=== PATIENT | female | born 1955 | race Caucasian/White ===

== ENCOUNTER 2017-02-21 19:58 | Emergency (ER) | payer BC ==
[2017-02-21] MEDS ORDERED: cefTRIAXone 1,000 MG VIAL IM ONE (20:34)
[2017-02-21] MEDS ORDERED: Diphtheria/Tetanus Toxoids,Adult (Td) 0.5 ML SDV IM ONE (20:36)
--- NOTE | 2017-02-21 20:42 | EDM.PDOC ---
ED HPI GENERAL MEDICAL PROBLEM - General Chief Complaint: Upper Extremity Injury/Pain Stated Complaint: FELL AND STAB WITH THE NAIL Time Seen by Provider: 02/21/17 20:14 Source of Information: Reports: Patient, Family History Limitations: Reports: No Limitations - History of Present Illness INITIAL COMMENTS - FREE TEXT/NARRATIVE: 61 years old w f came to the ed with her friend after she fell at 7.30 onto a board with a uziel nail in it. 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 No loss of function, no bleed. Swelling around to puncture wound. 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 Pt denied other acute medical issues. Pt has H/O MRSA infections. Onset: Today, Sudden Onset Date: 02/21/17 Onset Time: 19:30 Duration: Hour(s):, Intermittent Location: Reports: Upper Extremity, Right Quality: Reports: Ache, Burning, Dull, Pressure Severity: Mild Improves with: Reports: Cold Therapy, Medication Worsens with: Reports: Medication Context: Reports: Trauma Associated Symptoms: Reports: No Other Symptoms Right Hand Pain Score (Numeric/FACES): 10 - Related Data Allergies Allergy/AdvReac Type Severity Reaction Status Date / Time droperidol [From Innovar] Allergy Other Verified 02/21/17 20:06 fentanyl [From Innovar] Allergy Other Verified 02/21/17 20:06 prochlorperazine Allergy Hypertensio Verified 02/21/17 20:06 [From Compazine] n sulfamethoxazole Allergy Rash Verified 02/21/17 20:06 [From Bactrim] trimethoprim [From Bactrim] Allergy Rash Verified 02/21/17 20:06 Home Meds: Home Meds Acetaminophen/HYDROcodone [[place] 325-5 MG] 1 tab PO Q4H PRN #16 tab 02/21/17 [Rx ] Armodafinil [Nuvigil] 250 mg PO DAILY 02/21/17 [History] Cephalexin [Keflex] 500 mg PO Q6HR #40 cap 02/21/17 [Rx] Cetirizine HCl [Zyrtec] 10 mg PO DAILY 02/21/17 [History] Clindamycin HCl 300 mg PO TID #30 capsule 02/21/17 [Rx] Diazepam [Valium] 5 mg PO ASDIRECTED PRN 02/21/17 [History] Eletriptan HBr [Relpax] 20 mg PO DAILY PRN 02/21/17 [History] Formoterol/Mometasone [Dulera 100 MCG/5 MCG] 2 puff INH BID 02/21/17 [History] Melatonin/Pyridoxine HCl (B6) [Melatonin 10 mg Tablet] 1 tab PO BEDTIME [History] Omeprazole Magnesium [Prilosec Otc] 20 mg PO BID 02/21/17 [History] Ondansetron [Zofran ODT] 4 mg PO ASDIRECTED PRN 02/21/17 [History] Promethazine [Phenergan] 25 mg PO ASDIRECTED PRN 02/21/17 [History] Sertraline [Zoloft] 50 mg PO DAILY 02/21/17 [History] Tolterodine Tartrate [Detrol LA] 4 mg PO DAILY 02/21/17 [History] Past Medical History Gastrointestinal History: Reports: GERD 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: Musculoskeletal History: Reports: Fracture, Osteoarthritis Neurological History: Reports: Concussion, Migraines Psychiatric History: Reports: Anxiety, Depression - Past Surgical History HEENT Surgical History: Reports: Naso-Sinus Surgery GI Surgical History: Reports: Appendectomy, Cholecystectomy, Colonoscopy Female Surgical History: Reports: Hysterectomy Neurological Surgical History: Reports: C-Spine Musculoskeletal Surgical History: Reports: Arthroscopic Knee Social & Family History - Family History Family Medical History: Noncontributory - Tobacco Use Smoking Status *Q: Never Smoker Second Hand Smoke Exposure: Yes - Caffeine Use Caffeine Use: Reports: Coffee, Soda - Recreational Drug Use Recreational Drug Use: No Review of Systems - Review of Systems Review Of Systems: See Below Constitutional: Reports: No Symptoms Eyes: Reports: No Symptoms Ears: Reports: No Symptoms Nose: Reports: No Symptoms Mouth/Throat: Reports: No Symptoms Respiratory: Reports: No Symptoms Cardiovascular: Reports: No Symptoms GI/Abdominal: Reports: No Symptoms Genitourinary: Reports: No Symptoms Musculoskeletal: Reports: Hand Pain, Muscle Pain Skin: Reports: Wound (punctured r hypertenar) Neurological: Reports: Numbness (r thumb with FROM) Psychiatric: Reports: No Symptoms ED EXAM, GENERAL - Physical Exam Exam: See Below Exam Limited By: No Limitations General Appearance: Alert, WD/WN, Mild Distress Eye Exam: Bilateral Eye: Normal Inspection Ears: Normal External Exam Ear Exam: Bilateral Ear: Auricle Normal Nose: Normal Inspection, Normal Mucosa, No Blood Throat/Mouth: Normal Inspection, Normal Lips Head: Atraumatic, Normocephalic Neck: Normal Inspection, Supple Respiratory/Chest: No Respiratory Distress, Lungs Clear, Normal Breath Sounds, No Accessory Muscle Use Cardiovascular: Normal Peripheral Pulses, Regular Rate, Rhythm, No Edema Peripheral Pulses: 1+: Femoral (L), Femoral (R) GI/Abdominal: Normal Bowel Sounds, Soft, Non-Tender (Female) Exam: Deferred Rectal (Female) Exam: Deferred Back Exam: Normal Inspection, Full Range of Motion Extremities: Other (ROM 90% of r thump with mild numbness, CAP refill < 2 sec. ) Neurological: Alert, Oriented, CN II-XII Intact, Normal Cognition, Normal Gait, Sensory/Motor Deficit (minor r thimb/hypertenar) Psychiatric: Normal Affect, Normal Mood Skin Exam: Warm, Dry, Intact, Normal Color, No Rash, Wound/Incision (punctured wound r thumb with hematoma) Lymphatic: No Adenopathy Course - Vital Signs Text/Narrative:: 61 years old w f came to the ed with her friend after she fell at 7.30 onto a board with a uziel nail in it. 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 No loss of function, no bleed. Swelling around to puncture wound. 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 Pt denied other acute medical issues. Last TD immunization unclear. H/O MRSA infections. PE: Punctured wound r hypertenar, no bleed, no erythema, mild numbness with limited ROM (minor) Imaging: R hand: Hematoma r hypertenar, no FB. Impression: Punctured wound r Hand. H/O MRSA, DDX: Carpal tunnel, hematoma, comprssed nerves of hypertenar r hand Tx: TD, Rocephin, Clindamycin, ICE, Vicodin, Hand elevation, dressing Reexam: Improved. Plan: D/C to home with instructions. Addendum: F/U call on 02/23/2017: Pt is doing better as per . Last Recorded V/S: Last Vital Signs Temp 36.8 C 02/21/17 20:14 Pulse 74 02/21/17 21:45 Resp 18 02/21/17 21:45 BP 138/95 H 02/21/17 21:45 Pulse Ox 97 02/21/17 21:45 - Orders/Labs/Meds Meds: Medications Discontinued Medications Generic Name Dose Route Start Last Admin Trade Name Freq PRN Reason Stop Dose Admin Hydrocodone Bitart/Acetaminophen 1 tab 02/21/17 20:43 02/21/17 20:59 [place] 325-5 Mg PO 02/21/17 20:44 1 tab ONETIME ONE Administration Ceftriaxone Sodium 1,000 mg 02/21/17 20:34 02/21/17 20:54 Rocephin IM 02/21/17 20:35 1,000 mg ONETIME ONE Administration Clindamycin HCl 300 mg 02/21/17 21:16 02/21/17 21:30 Cleocin PO 02/21/17 21:17 300 mg ONETIME ONE Administration Diphtheria/Tetanus/Acell Pertussis 0.5 ml 02/21/17 20:51 02/21/17 20:51 Adacel IM 02/21/17 20:52 0.5 ml .ONCE ONE Administration Insulin Human Regular 0 unit 02/22/17 09:00 Humulin R SUBCUT TID [facility] Protocol Tetanus/Diphtheria Toxoids 0.5 ml 02/21/17 20:36 02/21/17 20:55 Tenivac IM 02/21/17 20:37 Not Given .ONCE ONE Departure - Departure Time of Disposition: 21:26 Disposition: Home, Self-Care 01 Condition: Good Clinical Impression: Puncture wound of hand, right Qualifiers: Encounter type: initial encounter Foreign body presence: without foreign body Qualified Code(s): S61.431A - Puncture wound without foreign body of right hand , initial encounter - Discharge Information Prescriptions: Cephalexin [Keflex] 500 mg PO Q6HR #40 cap Acetaminophen/HYDROcodone [[place] 325-5 MG] 1 tab PO Q4H PRN #16 tab PRN Reason: severe pain Clindamycin HCl 300 mg PO TID #30 capsule Referrals: Adelaida Calderón MD [Primary Care Provider] - Forms: ED Department Discharge Additional Instructions: please take the meds as recommended, please take vicodin for severe pain, please soak r hand in betadiene (diluted) twice for 3 days. Please f/u with your PMD in 3-5 days, please come back to the ed if your symptoms get worse acutely.
[2017-02-21] MEDS ORDERED: Acetaminophen/HYDROcodone 325-5 MG Tab PO ONE ×2 (20:43→21:16)
[2017-02-21] MEDS ORDERED: Diphtheria,Pertussis(Acell),Tetanus Vaccine 0.5 ML SDV IM ONE (20:51)
[2017-02-21] MEDS ORDERED: Clindamycin HCl 150 MG Cap PO ONE (21:16)
[2017-02-21 22:09] VITALS: BP 138/95
[2017-02-22] MEDS ORDERED: Insulin Regular, Human 100 Units/ML 3 ML Vial SUBCUT SCH (09:00)
--- NOTE | 2017-02-24 15:26 | CR ---
INDICATION: Puncture wound - nail went through hand. RIGHT HAND: Three views of the right hand were obtained and revealed no definite foreign body, fracture, or dislocation. Osteoarthritic changes are noted at the first metatarsal tarsal joint, navicular multangular joints, first metatarsophalangeal joint to a minimal degree, as well as at the interphalangeal joint of the thumb and the DIP joints in general, most severe at the index finger. Degenerative changes are also noted at the second metacarpophalangeal joint. IMPRESSION: 1. No definite acute fracture or dislocation. 2. Osteoarthritis. MTDD
== END 2017-02-21 21:50 | disposition home or self-care (01) ==
LOC: FB.ED 19:58
DX: S61.431A Puncture wound without foreign body of right hand, initial encounter (principal); M19.90 Unspecified osteoarthritis, unspecified site; G43.909 Migraine, unspecified, not intractable, without status migrainosus; F41.9 Anxiety disorder, unspecified; F32.9 Major depressive disorder, single episode, unspecified; Z79.899 Other long term (current) drug therapy; Z90.49 Acquired absence of other specified parts of digestive tract; Z98.890 Other specified postprocedural states; Z90.710 Acquired absence of both cervix and uterus; Z79.2 Long term (current) use of antibiotics; Z88.2 Allergy status to sulfonamides; Z88.8 Allergy status to other drugs, medicaments and biological substances; X58.XXXA Exposure to other specified factors, initial encounter
CPT/HCPCS: 73130; 90715; 99283; A4217; A9270; J0696

== ENCOUNTER 2017-04-22 18:12 | Emergency (ER) | payer OTHER, BC ==
[~2017-04-22 18:12] MED LIST: Lidocaine 1% with EPINEPHrine 1:100,000 20 ML MDV INFILT ONE
--- NOTE | 2017-04-22 18:42 | EDM.PDOC ---
ED HPI GENERAL MEDICAL PROBLEM - General Chief Complaint: Upper Extremity Injury/Pain Stated Complaint: LEFT MIDDLE FINGER CUT Time Seen by Provider: 04/22/17 18:15 Source of Information: Reports: Patient History Limitations: Reports: No Limitations - History of Present Illness INITIAL COMMENTS - FREE TEXT/NARRATIVE: 62 yo female cut her finger on a broken glass at work before arrival. Tetanus is UTD. Is worried about retained glass. 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 (see below) (wound rinsed.) - Related Data Allergies Allergy/AdvReac Type Severity Reaction Status Date / Time droperidol [From Innovar] Allergy Other Verified 02/21/17 20:06 fentanyl [From Innovar] Allergy Other Verified 02/21/17 20:06 prochlorperazine Allergy Hypertensio Verified 02/21/17 20:06 [From Compazine] n sulfamethoxazole Allergy Rash Verified 02/21/17 20:06 [From Bactrim] trimethoprim [From Bactrim] Allergy Rash Verified 02/21/17 20:06 Home Meds: Home Meds Acetaminophen/HYDROcodone [[place] 325-5 MG] 1 tab PO Q4H PRN #16 tab 02/21/17 [Rx ] Armodafinil [Nuvigil] 250 mg PO DAILY 02/21/17 [History] Cephalexin [Keflex] 500 mg PO Q6HR #40 cap 02/21/17 [Rx] Cetirizine HCl [Zyrtec] 10 mg PO DAILY 02/21/17 [History] Clindamycin HCl 300 mg PO TID #30 capsule 02/21/17 [Rx] Diazepam [Valium] 5 mg PO ASDIRECTED PRN 02/21/17 [History] Eletriptan HBr [Relpax] 20 mg PO DAILY PRN 02/21/17 [History] Formoterol/Mometasone [Dulera 100 MCG/5 MCG] 2 puff INH BID 02/21/17 [History] Melatonin/Pyridoxine HCl (B6) [Melatonin 10 mg Tablet] 1 tab PO BEDTIME [History] Omeprazole Magnesium [Prilosec Otc] 20 mg PO BID 02/21/17 [History] Ondansetron [Zofran ODT] 4 mg PO ASDIRECTED PRN 02/21/17 [History] Promethazine [Phenergan] 25 mg PO ASDIRECTED PRN 02/21/17 [History] Sertraline [Zoloft] 50 mg PO DAILY 02/21/17 [History] Tolterodine Tartrate [Detrol LA] 4 mg PO DAILY 02/21/17 [History] Past Medical History Gastrointestinal History: Reports: GERD 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: Musculoskeletal History: Reports: Fracture, Osteoarthritis Neurological History: Reports: Concussion, Migraines Psychiatric History: Reports: Anxiety, Depression - Past Surgical History HEENT Surgical History: Reports: Naso-Sinus Surgery GI Surgical History: Reports: Appendectomy, Cholecystectomy, Colonoscopy Female Surgical History: Reports: Hysterectomy Neurological Surgical History: Reports: C-Spine Musculoskeletal Surgical History: Reports: Arthroscopic Knee Social & Family History - Family History Family Medical History: Noncontributory - Tobacco Use Smoking Status *Q: Never Smoker Second Hand Smoke Exposure: Yes - Caffeine Use Caffeine Use: Reports: Coffee, Soda - Recreational Drug Use Recreational Drug Use: No Review of Systems - Review of Systems Review Of Systems: See Below Constitutional: Reports: No Symptoms Musculoskeletal: Reports: No Symptoms Skin: Reports: Wound (L hand) Neurological: Reports: No Symptoms Psychiatric: Reports: No Symptoms ED EXAM, GENERAL - Physical Exam Exam: See Below Exam Limited By: No Limitations General Appearance: Alert, WD/WN, No Apparent Distress Extremities: Other (wound left hand) Neurological: Alert, Oriented, CN II-XII Intact, Normal Cognition, No Motor/ Sensory Deficits Psychiatric: Normal Affect, Normal Mood Skin Exam: Warm, Dry, Normal Color, No Rash, Wound/Incision (small laceration L long finger) Lymphatic: No Adenopathy ED TRAUMA EXTREMITY PROCEDURES - Laceration/Wound Repair Left Anterior Finger Lac/Wound Length In cm: 0.2 Appearance: Subcutaneous, Clean Distal NVT: Neuro & Vascular Intact, No Tendon Injury Anesthetic Type: Local Local Anesthesia - Lidocaine (Xylocaine): 1% with EPI Local Anesthetic Volume: 2cc Skin Prep: Other (surgical scrub) Exploration/Debridement/Repair: Wound Explored, Minimal Debridement, No Foreign Material Found Closed With: Sutures Suture Size: other (5-0) Suture Type: Nylon, Interrupted, Simple Drain Placement: No Sterile Dressing Applied: Nurse Tetanus Status Addressed: Yes Complications: No Departure - Departure Time of Disposition: 18:46 Disposition: Home, Self-Care 01 Condition: Good Clinical Impression: Laceration of finger Qualifiers: Encounter type: initial encounter Finger: middle finger Damage to nail status: without damage Foreign body presence: without foreign body Laterality: left Qualified Code(s): S61.213A - Laceration without foreign body of left middle finger without damage to nail, initial encounter - Discharge Information Referrals: Sheets-Adelaida Delgado MD [Primary Care Provider] - Additional Instructions: Clean wound twice daily with soap and water. Dry. Apply antibiotic ointment and a new dressing. Stitches out in 9-10 days in the clinic, call for an appt. Take acetaminophen as needed for pain relief. Recheck for signs of infection.
[2017-04-22 19:01] VITALS: BP 145/69
== END 2017-04-22 19:05 | disposition home or self-care (01) ==
LOC: FB.ED 18:12
DX: S61.213A Laceration without foreign body of left middle finger without damage to nail, initial encounter (principal); K21.9 Gastro-esophageal reflux disease without esophagitis; F41.9 Anxiety disorder, unspecified; F32.9 Major depressive disorder, single episode, unspecified; M19.90 Unspecified osteoarthritis, unspecified site; Z88.8 Allergy status to other drugs, medicaments and biological substances; Z88.2 Allergy status to sulfonamides; Z88.1 Allergy status to other antibiotic agents; Z79.899 Other long term (current) drug therapy; Z90.49 Acquired absence of other specified parts of digestive tract; Z90.710 Acquired absence of both cervix and uterus; Z98.890 Other specified postprocedural states; W25.XXXA Contact with sharp glass, initial encounter
CPT/HCPCS: 12001; 99283

== ENCOUNTER 2018-01-06 07:13 | Day surgery (SDC) | payer BC, MEDICAID ==
[2018-01-06] MEDS ORDERED: Sodium Chloride 0.9% 10 ML Syringe FLUSH PRN (07:15)
[2018-01-06] MEDS ORDERED: Lactated Ringers 1,000 ML IV SCH (07:15)
--- NOTE | 2018-01-06 08:35 | PCM.HPR ---
H & P Addendum review - H & P Addendum Review Date of Original H & P: 01/02/18 Date Reviewed: 01/06/18 Time Reviewed: 08:34 Patient was Examined: No Changes
[2018-01-06] MEDS ORDERED: Lactated Ringers 1,000 ML IV ONE (08:40)
[2018-01-06] MEDS ORDERED: Propofol 200 MG/20 ML SDV IV ONE (08:40)
[2018-01-06] MEDS ORDERED: Midazolam 1 MG/ML 2 ML SDV IV ONE (08:40)
[2018-01-06] MEDS ORDERED: Lidocaine 1% with EPINEPHrine 1:100,000 20 ML MDV INJECT ONE (09:38)
[2018-01-06] MEDS ORDERED: Bupivacaine 0.5% 30 ML SDV INJECT ONE (09:38)
--- NOTE | 2018-01-06 09:52 | PCM.OPNOTE ---
- General Post-Op/Procedure Note Date of Surgery/Procedure: 01/06/18 Operative Procedure(s): Colonoscopy. LEFT Lateral Internal Sphincterotomy Findings: Normal Colonoscopy Chronic Anal Fissure Pre Op Diagnosis: Hematochezia Post-Op Diagnosis: Same Anesthesia Technique: MAC Primary Surgeon: Marcos Bell EBL in mLs: 5 Complications: None Condition: Good
[2018-01-06 11:31] VITALS: BP 128/86
--- NOTE | 2018-01-06 15:03 | OR ---
DATE OF OPERATION: 01/06/2018 SURGEON: Marcos Bell MD PREOPERATIVE DIAGNOSES: 1. History of colon polyps. 2. Hematochezia. POSTOPERATIVE DIAGNOSES: 1. Normal colonoscopy. 2. Chronic anal fissure. PROCEDURES PERFORMED: 1. Colonoscopy. 2. Left lateral internal sphincterotomy. ANESTHESIA: Local with IV sedation. DESCRIPTION OF PROCEDURE: The patient was brought to the procedure room, where she was placed on her left side and IV sedation administered. Digital rectal exam was performed, which was normal. Anoscopic examination was then performed and reveals a chronic anal fissure in the anterior midline. There was no active bleeding today, but it appears inflamed and likely had recent bleeding. The colonoscope was inserted and advanced to the level of the cecum with some difficulty getting to the right colon requiring pressure on the abdomen. I was able to reach the cecum, which was confirmed by identifying the appendiceal lumen and ileocecal valve. Prep was good and surfaces were well visualized. Upon withdrawing the scope, the ascending, transverse and descending colon were normal in appearance. The sigmoid colon and rectum were normal. Retroflexion was normal. Air was removed, and the scope withdrawn. The patient tolerated this portion of the procedure well. Next, the patient was brought to the operating room, where she was placed in the prone jackknife position. Buttocks were sprayed with benzoin and retracted with tape. Betadine prep was performed. The anal fissure was again reconfirmed in the anterior midline. Some mildly enlarged internal hemorrhoidal tissue was present, but no evidence that this is responsible for her bleeding. A 50:50 mixture of 1% lidocaine with epinephrine and 0.5% Marcaine was infiltrated in the left perianal region and a small incision made. Internal sphincter was dissected, and the tight constricting band portion transected with Metzenbaum scissors. I then pressed this area with my finger again and dilated this slightly. I did not want to split any more muscle fiber since she did tell me in the office that she does have some occasional incontinence. I felt I split just enough muscle to allow the fissure to heal. Pressure was held for a few minutes and hemostasis assured. The skin was closed with interrupted 4-0 Vicryl. A bulky sterile pressure dressing was applied. The patient tolerated the procedure well. Estimated blood loss was 5 mL. She returned to Postanesthesia in a stable condition. /[id number] ANN MARIE/KINZA CC: Adelaida Calderón MD
== END 2018-01-06 11:30 | disposition home or self-care (01) ==
LOC: FB.SDS 07:13
PROVIDERS: ATTEND Surgery
DX: K92.1 Melena (principal); K60.1 Chronic anal fissure; Z88.5 Allergy status to narcotic agent; Z88.8 Allergy status to other drugs, medicaments and biological substances; Z86.010 Personal history of colon polyps
CPT/HCPCS: 45378; 46200; J2250; J2704; J7120

== ENCOUNTER 2020-12-21 17:44 | Emergency (ER) | payer MEDICARE, OTHER ==
[2020-12-21 18:30] VITALS: BP 119/73; PULSE 88
--- NOTE | 2020-12-21 18:44 | EDM.PDOC ---
ED HPI GENERAL MEDICAL PROBLEM - General Chief Complaint: Lower Extremity Injury/Pain Stated Complaint: DROPPED METAL ON RIGHT FOOT Time Seen by Provider: 12/21/20 18:05 Source of Information: Reports: Patient History Limitations: Reports: No Limitations - History of Present Illness INITIAL COMMENTS - FREE TEXT/NARRATIVE: Patient presented to the ED because of RT foot pain. He was cleaning the shelf and a 5 lb metal clock fell on her right foot. 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: Dressing(s) Right Foot Pain Score (Numeric/FACES): 6 - Related Data Allergies Allergy/AdvReac Type Severity Reaction Status Date / Time benzoin Allergy Cannot Verified 01/06/18 07:32 Remember droperidol [From Innovar] Allergy Other Verified 01/06/18 07:32 fentanyl [From Innovar] Allergy Other Verified 01/06/18 07:32 niacin Allergy Cannot Verified 01/06/18 07:32 Remember prochlorperazine Allergy Hypertensio Verified 01/06/18 07:32 [From Compazine] n sulfamethoxazole Allergy Rash Verified 01/06/18 07:32 [From Bactrim] trimethoprim [From Bactrim] Allergy Rash Verified 01/06/18 07:32 Home Meds: Home Meds Cetirizine HCl [Zyrtec] 10 mg PO DAILY 02/21/17 [History] Formoterol/Mometasone [Dulera 100 MCG/5 MCG] 2 puff INH BID 02/21/17 [History] Melatonin/Pyridoxine HCl (B6) [Melatonin Tr 10 mg Tablet] 10 mg PO BEDTIME 02/21/17 [History] Sertraline [Zoloft] 100 mg PO DAILY 02/21/17 [History] Tolterodine Tartrate [Detrol LA] 2 mg PO BID 02/21/17 [History] Albuterol [Ventolin HFA] 1 puff .XX Q4HR PRN 01/06/18 [History] Armodafinil [Nuvigil] 250 mg PO DAILY 01/06/18 [History] Eletriptan Hydrobromide [Relpax] 40 mg PO DAILY PRN 01/06/18 [History] Losartan [Cozaar] 50 mg PO DAILY 01/06/18 [History] Omeprazole Magnesium [Prilosec Otc] 20 mg PO BID 01/06/18 [History] Promethazine [Phenergan] 12.5 mg PO Q6H PRN 01/06/18 [History] ondansetron HCL [Zofran] 4 mg PO Q8HR PRN 01/06/18 [History] Past Medical History HEENT History: Reports: Cataract, Hard of Hearing, Impaired Vision Cardiovascular History: Reports: Heart Murmur, Hypertension, SOB on Exertion Respiratory History: Reports: Asthma, Bronchitis, Recurrent, COPD, Pneumonia, Re current, SOB Gastrointestinal History: Reports: Colon Polyp, Diverticulosis, GERD, Hemorrhoids Genitourinary History: Reports: Other (See Below) Other Genitourinary History: SPASTIC BLADDER, STRESS INCONTINENCE 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: Musculoskeletal History: Reports: Fracture, Neck Pain, Chronic, Osteoarthritis Neurological History: Reports: Migraines Psychiatric History: Reports: Depression Endocrine/Metabolic History: Reports: Obesity/BMI 30+ Hematologic History: Reports: Anemia, B12 Deficiency Immunologic History: Reports: Other (See Below) Other Immunologic History: MRSA Dermatologic History: Reports: Eczema, Other (See Below) - Infectious Disease History Infectious Disease History: Reports: Chicken Pox, Measles, MRSA, Mumps - Past Surgical History HEENT Surgical History: Reports: Cataract Surgery, Other (See Below) Other HEENT Surgeries/Procedures: EAR SURGERY GI Surgical History: Reports: Appendectomy, Cholecystectomy, Colonoscopy, EGD, Polypectomy Female Surgical History: Reports: Hysterectomy, Salpingo-Oophorectomy, Tubal Ligation, Other (See Below) Other Female Surgeries/Procedures: BLADDER REPAIR Neurological Surgical History: Reports: C-Spine Musculoskeletal Surgical History: Reports: Arthroscopic Knee, Other (See Below) Other Musculoskeletal Surgeries/Procedures:: NECK SURGERY Social & Family History - Family History Family Medical History: No Pertinent Family History - Tobacco Use Tobacco Use Status *Q: Never Tobacco User Second Hand Smoke Exposure: Yes - Caffeine Use Caffeine Use: Reports: Coffee Other Caffeine Use: 4 cups/day - Recreational Drug Use Recreational Drug Use: No Review of Systems - Review of Systems Review Of Systems: See Below Constitutional: Reports: No Symptoms Eyes: Reports: No Symptoms Ears: Reports: No Symptoms Nose: Reports: No Symptoms Mouth/Throat: Reports: No Symptoms Respiratory: Reports: No Symptoms Cardiovascular: Reports: No Symptoms GI/Abdominal: Reports: No Symptoms Genitourinary: Reports: No Symptoms Musculoskeletal: Reports: Foot Pain Skin: Reports: No Symptoms Neurological: Reports: No Symptoms ED EXAM, GENERAL - Physical Exam Exam: See Below Exam Limited By: No Limitations General Appearance: Alert, No Apparent Distress Ears: Normal External Exam, Normal Canal Nose: Normal Inspection, Normal Mucosa Throat/Mouth: Normal Inspection, Normal Lips Head: Atraumatic, Normocephalic Neck: Normal Inspection, Supple, Non-Tender, Full Range of Motion Respiratory/Chest: No Respiratory Distress, Lungs Clear, Normal Breath Sounds, No Accessory Muscle Use, Chest Non-Tender Cardiovascular: Normal Peripheral Pulses, Regular Rate, Rhythm, No Edema, No Gallop, No JVD, No Murmur, No Rub GI/Abdominal: Normal Bowel Sounds, Soft, Non-Tender, No Organomegaly, No Distention, No Abnormal Bruit, No Mass Back Exam: Normal Inspection, Full Range of Motion Extremities: Normal Inspection, Normal Range of Motion, Other (hematoma dorsum of rt foot) Neurological: Alert, Oriented, CN II-XII Intact Course - Vital Signs Text/Narrative:: Xray of right foot-negative Patient refused to have crutches Last Recorded V/S: Last Vital Signs Temp 36.6 C 12/21/20 17:59 Pulse 88 12/21/20 17:59 Resp 16 12/21/20 17:59 BP 119/73 12/21/20 17:59 Pulse Ox 97 12/21/20 17:59 - Orders/Labs/Meds Orders: Active Orders 24 hr Category Date Time Status Foot Comp Min 3V Rt [CR] Stat Exams 12/21/20 18:09 Taken Departure - Departure Time of Disposition: 18:40 Disposition: Home, Self-Care 01 Condition: Good Clinical Impression: Foot injury - Discharge Information Instructions: Crush Injury of the Foot, [id number] Referrals: Apolonia Mcghee, [facility] REDEVELOPMENT SPECIALIST [Primary Care Provider] - Forms: ED Department Discharge Additional Instructions: Please read discharge instructions on foot injury Apply ice Take ibuprofen 600 mg with tylenol 500 mg every 4-6 hours as needed for pain Wear your ortho boots until your foot pain is gone We will call you if there is any changes on your xray reading Sepsis Event Note (ED) - Evaluation Sepsis Screening Result: No Definite Risk - Focused Exam Vital Signs: Vital Signs Temp Pulse Resp BP Pulse Ox 12/21/20 17:59 36.6 C 88 16 119/73 97 - My Orders Last 24 Hours: My Active Orders 12/21/20 18:09 Foot Comp Min 3V Rt [CR] Stat - Assessment/Plan Last 24 Hours: My Active Orders 12/21/20 18:09 Foot Comp Min 3V Rt [CR] Stat
== END 2020-12-21 19:15 | disposition home or self-care (01) ==
LOC: FB.ED 17:44
DX: S90.31XA Contusion of right foot, initial encounter (principal); I10 Essential (primary) hypertension; J44.9 Chronic obstructive pulmonary disease, unspecified; K21.9 Gastro-esophageal reflux disease without esophagitis; E66.9 Obesity, unspecified; Z91.048 Other nonmedicinal substance allergy status; Z88.4 Allergy status to anesthetic agent; Z88.2 Allergy status to sulfonamides; Z88.1 Allergy status to other antibiotic agents; Z79.899 Other long term (current) drug therapy; Z88.8 Allergy status to other drugs, medicaments and biological substances; W20.8XXA Other cause of strike by thrown, projected or falling object, initial encounter
CPT/HCPCS: 73630-RT; 99283

== ENCOUNTER 2023-04-12 13:51 | Emergency (ER) | payer MEDICARE, OTHER ==
[2023-04-12] MEDS ORDERED: traMADol 50 MG Tab PO ONE (13:52)
[2023-04-12] MEDS ORDERED: Lidocaine 2% with EPINEPHrine 1:100,000 20 ML MDV INFILT ONE (13:52)
[2023-04-12] MEDS ORDERED: Sodium Chloride 0.9% 10 ML Syringe FLUSH PRN (14:55)
[2023-04-12] MEDS: Ondansetron 4 MG/2 ML SDV IVPUSH ONE (15:14)
[2023-04-12 15:31] LABS: HEMATOCRIT 36.8 % (34.2-48.2); HEMOGLOBIN 11.9 g/dL (11.4-15.5); MEAN CORPUSCULAR HEMOGLOBIN 28.8 pg (23.9-33.9); MEAN CORPUSCULAR HGB CONC 32.4 g/dL (31.9-34.8); MEAN CORPUSCULAR VOLUME 88.8 fL (76.7-100.5); RED BLOOD CELL COUNT 4.14 x10(6)uL (3.60-5.20); RED CELL DISTRIBUTION WIDTH 15.1 % (12.3-16.5); WHITE BLOOD CELL COUNT,WBC 8.5 x10-3/uL (3.0-10.3)
[2023-04-12 15:47] LABS: BLOOD UREA NITROGEN,BUN 23 mg/dL (7-18); BUN/CREATININE RATIO 17.7 (9-20); CALCIUM 8.7 mg/dL (8.6-10.2); CARBON DIOXIDE,CO2 29 mmol/L (21-32); CHLORIDE,CL 104 mmol/L (100-110); CREATININE 1.3 mg/dL (0.55-1.02); ESTIMATED GFR 45 mL/min (>60); GLUCOSE RANDOM 144 mg/dL (80-116); SODIUM,NA 137 mmol/L (135-145)
[2023-04-12 15:53] LABS: A/G RATIO 1.1; ALANINE AMINOTRANSFERASE,ALT 29 U/L (12-36); ALBUMIN 3.7 g/dL (3.2-4.6); ALKALINE PHOSPHATASE 71 IU/L (56-112); ASPARTATE AMNIOTRANSFERASE,AST 19 IU/L (5-25); BILIRUBIN TOTAL 0.3 mg/dL (0.1-1.3)
[2023-04-12] MEDS: Ondansetron 4 MG Tab.DIS PO PRN (17:03)
[2023-04-12 17:06] VITALS: BP 123/57; PULSE 69
== END 2023-04-12 17:05 | disposition home or self-care (01) ==
LOC: FB.ED 13:51
DX: S01.81XA Laceration without foreign body of other part of head, initial encounter (principal); S06.0X0A Concussion without loss of consciousness, initial encounter; I10 Essential (primary) hypertension; K21.9 Gastro-esophageal reflux disease without esophagitis; E66.9 Obesity, unspecified; J45.909 Unspecified asthma, uncomplicated; Z79.899 Other long term (current) drug therapy; Z88.1 Allergy status to other antibiotic agents; Z88.2 Allergy status to sulfonamides; Z88.8 Allergy status to other drugs, medicaments and biological substances; W01.0XXA Fall on same level from slipping, tripping and stumbling without subsequent striking against object, initial encounter
CPT/HCPCS: 12015; 36415; 70450; 80053; 84484; 85027; 93005; 96374; 99283; 99284-25; A9270-GY; J2405; Q0162

== ENCOUNTER 2023-04-19 18:24 | Emergency (ER) | payer OTHER ==
[2023-04-19] MEDS ORDERED: traMADol 50 MG Tab PO ONE (18:25)
[2023-04-19 18:59] VITALS: BP 144/73; PULSE 88
== END 2023-04-19 21:54 | disposition home or self-care (01) ==
LOC: FB.ED 18:24
DX: S00.83XA Contusion of other part of head, initial encounter (principal); S20.213A Contusion of bilateral front wall of thorax, initial encounter; S09.90XA Unspecified injury of head, initial encounter; I10 Essential (primary) hypertension; J44.9 Chronic obstructive pulmonary disease, unspecified; E66.9 Obesity, unspecified; Z88.8 Allergy status to other drugs, medicaments and biological substances; Z88.1 Allergy status to other antibiotic agents; Z79.51 Long term (current) use of inhaled steroids; Z79.899 Other long term (current) drug therapy; W01.0XXA Fall on same level from slipping, tripping and stumbling without subsequent striking against object, initial encounter
CPT/HCPCS: 70450; 70486; 71111; 99284; A9270; 99283

== ENCOUNTER 2025-01-16 21:04 | Emergency (ER) | payer MEDICARE, OTHER ==
[2025-01-16] MEDS ORDERED: Sodium Chloride 0.9% 10 ML Syringe FLUSH PRN (21:13)
[2025-01-16] MEDS: Ketorolac 30 MG/ML SDV IVPUSH ONE (21:31)
[2025-01-16 22:02] LABS: BASOPHILS ABSOLUTE AUTO 0.1 x10-3/uL (0.0-0.1); BASOPHILS PERCENT AUTO 0.9 % (0.2-1.5); EOSINOPHILS ABSOLUTE AUTO 0.4 x10-3/uL (0.0-0.8); EOSINOPHILS PERCENT AUTO 6.1 % (0.6-8.1); HEMATOCRIT 36.8 % (34.2-48.2); HEMOGLOBIN 12.2 g/dL (11.4-15.5); LYMPHOCYTES ABSOLUTE AUTO 1.8 x10-3/uL (1.0-4.4); LYMPHOCYTES PERCENT AUTO 30.1 % (18.4-52.1); MEAN CORPUSCULAR HEMOGLOBIN 31.1 pg (23.9-33.9); MEAN CORPUSCULAR HGB CONC 33.1 g/dL (31.9-34.8); MEAN PLATELET VOLUME 7.9 fL (7.1-12.4); MONOCYTES ABSOLUTE AUTO 0.4 x10-3/uL (0.3-1.0); MONOCYTES PERCENT AUTO 5.9 % (4.4-15.7); NEUTROPHILS ABSOLUTE AUTO 3.4 x10-3/uL (1.5-6.3); PLATELET COUNT,PLT 152 x10(3)uL (151-488); RED BLOOD CELL COUNT 3.91 x10(6)uL (3.60-5.20)
[2025-01-16 22:06] LABS: BLOOD UREA NITROGEN,BUN 17 mg/dL (7-18); BUN/CREATININE RATIO 14.2 (9-20); CALCIUM 8.6 mg/dL (8.6-10.2); CARBON DIOXIDE,CO2 25 mmol/L (21-32); CHLORIDE,CL 105 mmol/L (100-110); CREATININE 1.2 mg/dL (0.55-1.02); EST CRCL DRUG DOSING (CG) 32.45 mL/min; ESTIMATED GFR 48 mL/min (>60); GLUCOSE RANDOM 96 mg/dL (80-116); POTASSIUM,K 4.5 mmol/L (3.5-5.3); SODIUM,NA 137 mmol/L (135-145)
[2025-01-16 22:13] LABS: A/G RATIO 1.1; ALANINE AMINOTRANSFERASE,ALT 26 U/L (12-36); ALBUMIN 3.8 g/dL (3.2-4.6); ALKALINE PHOSPHATASE 59 IU/L (56-112); ASPARTATE AMNIOTRANSFERASE,AST 16 IU/L (5-25); BILIRUBIN TOTAL 0.3 mg/dL (0.1-1.3); PROTEIN TOTAL,TP 7.2 g/dL (6.0-8.0)
[2025-01-16] MEDS: Acetaminophen/HYDROcodone 325-5 MG Tab PO ONE (22:39)
[2025-01-17] MEDS: Ondansetron 4 MG Tab.DIS PO ONE ×2 (00:10→12:34)
[2025-01-17 00:37] LABS: APPEARANCE,URINE SLIGHTLY CLOUDY (CLEAR); BACTERIA,URINE FEW (NS); BILIRUBIN,URINE NEGATIVE (NEGATIVE); COLOR,URINE YELLOW (YELLOW); GLUCOSE,URINE NORMAL (NORMAL); KETONES,URINE NEGATIVE (NEGATIVE); LEUKOCYTE ESTERASE,URINE MODERATE (NEGATIVE); NITRITE,URINE NEGATIVE (NEGATIVE); OCCULT BLOOD,URINE NEGATIVE (NEGATIVE); PROTEIN,URINE TRACE mg/dL (NEGATIVE); RBC,URINE 0-5 (0-5); SQUAMOUS EPITHELIAL CELLS,UR MANY (NS,R,O); UROBILINOGEN,URINE 4 mg/dL (NEGATIVE); WBC,URINE 0-5 (0-5)
[2025-01-17 00:39] LABS: COARSE GRANULAR CASTS,URINE OCCASIONAL (NS); MUCUS,URINE FEW (NS)
[2025-01-17] MEDS: traZODone 50 MG Tab PO ONE (01:19)
[2025-01-17] MEDS: LORazepam 1 MG Tab PO ONE (01:19)
[2025-01-17] MEDS: Topiramate 50 MG Tab PO SCH (01:19)
[2025-01-17] MEDS: Acetaminophen/HYDROcodone 325-5 MG Tab PO PRN (05:18)
[2025-01-17 08:41] VITALS: PULSE 68
[2025-01-17 09:03] VITALS: BP 78/40
[2025-01-17] MEDS ORDERED: Sodium Chloride 0.9% 10 ML Syringe FLUSH PRN (11:21)
[2025-01-17] MEDS ORDERED: Sodium Chloride 0.9% 1,000 ML IV SCH (11:30)
[2025-01-17] MEDS ORDERED: Pantoprazole 40 MG Tab.CR PO ONE (12:00)
[2025-01-17] MEDS: traMADol 50 MG Tab PO ONE (14:52)
== END 2025-01-17 15:52 | disposition home or self-care (01) ==
LOC: FB.ED 21:04
DX: S16.1XXA Strain of muscle, fascia and tendon at neck level, initial encounter (principal); S00.31XA Abrasion of nose, initial encounter; S60.311A Abrasion of right thumb, initial encounter; I10 Essential (primary) hypertension; J44.89 Other specified chronic obstructive pulmonary disease; K21.9 Gastro-esophageal reflux disease without esophagitis; Z90.49 Acquired absence of other specified parts of digestive tract; Z90.710 Acquired absence of both cervix and uterus; Z88.8 Allergy status to other drugs, medicaments and biological substances; Z79.51 Long term (current) use of inhaled steroids; Z79.82 Long term (current) use of aspirin; Z79.899 Other long term (current) drug therapy; W01.0XXA Fall on same level from slipping, tripping and stumbling without subsequent striking against object, initial encounter
CPT/HCPCS: 36410; 36415; 70450; 71045; 71100; 72125; 73130; 80053; 81001; 85025; 96372; 99100; 99284; A9270; J1885; Q0162